=== PATIENT | female | born 1960 ===

== ENCOUNTER 2017-07-20 06:17 | Day surgery (SDC) | payer BC, OTHER ==
[2017-07-19 11:22] VITALS: BMI 33.6
[2017-07-20] MEDS ORDERED: LIDOCAINE HCL 1%, 10 MG/ML (20ML VIAL) ONE (07:22)
[2017-07-20] MEDS ORDERED: DEXAMETHASONE SOD PHOSPHATE 4 MG/1 ML VIAL ONE ×3 (07:22→09:06)
[2017-07-20] MEDS ORDERED: BUPIVACAINE HCL/PF 0.5% (5MG/ML) 10 ML VIAL ONE (07:22)
[2017-07-20] MEDS ORDERED: PROPOFOL 20 ML ONE ×2 (08:00)
[2017-07-20] MEDS ORDERED: CLINDAMYCIN PHOSPHATE 600 MG/4 ML VIAL ONE (08:00)
[2017-07-20] MEDS ORDERED: LIDOCAINE HCL/PF 2% SDV 5ML VIAL ONE (08:00)
[2017-07-20] MEDS ORDERED: MIDAZOLAM HCL 2 MG/2 ML SINGLE DOSE VIAL ONE (08:00)
[2017-07-20] MEDS ORDERED: BUPIVACAINE HCL/PF 0.5% (5MG/ML) 10 ML VIAL PNB ONE (08:32)
[2017-07-20] MEDS ORDERED: LIDOCAINE HCL 1%, 10 MG/ML (50 mL VIAL) IJ ONE (08:32)
[2017-07-20] MEDS ORDERED: KETOROLAC TROMETHAMINE 30 MG/1 ML VIAL ONE (08:40)
[2017-07-20] MEDS ORDERED: CLINDAMYCIN 600 MG PREMIX BAG IVPB ONE (08:48)
[2017-07-20] MEDS ORDERED: BENZOIN/ALOE VERA/STORAX/TOLU 58 ML BOTTLE ONE (08:56)
[2017-07-20] MEDS ORDERED: oxyCODONE HCL 5 MG TABLET PO PRN (09:27)
[2017-07-20] MEDS ORDERED: ONDANSETRON 4 MG/2 ML VIAL IVPUSH PRN (09:27)
[2017-07-20] MEDS ORDERED: SCOPOLAMINE HYDROBROMIDE 1 PATCH PATCH.TD72 TD SCH (09:30)
[2017-07-20] MEDS ORDERED: LACTATED RINGERS SOLUTION 1,000 ML IV SCH (09:30)
[2017-07-20] MEDS ORDERED: SCOPOLAMINE HYDROBROMIDE 1 PATCH PATCH.TD72 TD ONE (09:33)
[2017-07-20 10:25] VITALS: TEMP 97.8
[2017-07-20 17:22] VITALS: BP 144/90; PULSE 70
--- NOTE | 2017-07-23 15:21 | PATH ---
Surgical Pathology Report Patient Name: KATHERINE LEE [facility]. Rec. #: [id number] /Age/Gender: 1960 (Age: 57) / M Account: [id number] Location: [facility] Taken: 07/20/2017 Received: 07/20/2017 Reported: 07/23/2017 Physicians: Veronica Martin DPM Specimen(s) Received BONE FROM RIGHT FOOT Clinical History Right foot bunion Final Diagnosis BONE, FOOT, RIGHT, BUNIONECTOMY: BONE WITH DEGENERATIVE CHANGES, DENSE FIBROCONNECTIVE TISSUE AND FIBROADIPOSE TISSUE. Electronically Signed Emerald Carias M.D. Gross Description Received in formalin labeled "bone from right foot," are 2 gonzales, irregular portions of bone measuring 1.2 x 0.8 x 0.3 cm and 1.8 x 1.5 x 0.2 cm. Hydropulper Operator sections are submitted in one cassette, following decalcification. /07/20/2017 [facility]07/20/2017
--- NOTE | 2017-07-29 13:48 | OP ---
DATE OF OPERATION: DATE OF DICTATION: 07/29/2017 SURGEONS: Veronica Martin DPM; Jagdeep Fontaine DPM DIESEL LOCOMOTIVE FIRER: Fredi, PGY-2 PREOPERATIVE DIAGNOSIS: Right foot painful bunion. POSTOPERATIVE DIAGNOSIS: Right foot painful bunion. PROCEDURE: Right foot Chauncey bunionectomy with screw fixation. ANESTHESIA: Local with MAC. PATHOLOGY: Right foot bone and soft tissue. ESTIMATED BLOOD LOSS: Minimal. HEMOSTASIS: Right ankle tourniquet at 250 mmHg and electrocautery. MATERIALS USED: A 16 mm 3.0 Essex 28 screw; 2-0 Vicryl, 3-0 Vicryl, 4-0 Vicryl suture, and 4-0 Monocryl suture; dry sterile dressing and Coban. INJECTABLES: 20 mL of a 1:1 mixture of 1% lidocaine plain and 0.5% Marcaine plain used preoperatively, and 10 mL of a mixture of 7 to 3 of 0.5% Marcaine and 4 mg dexamethasone used postoperatively. DESCRIPTION: The patient was brought to the operating room and placed on the operating table in the supine position. A pneumatic ankle tourniquet was placed on the patient's right ankle. Following IV sedation, local anesthesia was obtained using 20 mL of a 1:1 mixture of 1% lidocaine plain and 0.5% Marcaine plain throughout the surgical site. The right foot was then scrubbed, prepped and draped in the usual aseptic manner. An Esmarch bandage was then utilized to exsanguinate the patient's right foot and the tourniquet was inflated. Attention was first directed to the dorsal aspect of the first metatarsal head of the right foot, where a linear incision was made medial and parallel to the tendon of the extensor hallucis longus. The incision was then deepened through the subcutaneous tissue using sharp and blunt dissection. Care was taken to identify all vital neural and vascular structures. All bleeders were ligated and cauterized as necessary. At this time, a linear capsulotomy was performed over the dorsal aspect of the 1st metatarsophalangeal joint. The periosteal and capsular structures were carefully dissected medially and laterally, exposing the head of the 1st metatarsal. Attention was then directed to the medial aspect of the 1st metatarsal head. Using a sagittal saw, the medial prominence was then resected and passed from the operative field and sent to Pathology. Retraction was directed for better visualization of the first metatarsal head. A through and through chevron-type osteotomy was then created utilizing a sagittal saw, the apex pointed distally. The capital fragment was then shifted laterally to improve the position and then impacted into the head of the metatarsal shaft using a 0.45 K wire driven across the osteotomy to provide temporary fixation. Using a 3.0 16-mm Essex 28 screw, this was inserted across the osteotomy site, providing excellent compression and fixation. Then the initial K wire fixator was removed. The remaining rough edges of the 1st metatarsal head were then resected using a power bur, and the bunion deformity was noted to be vastly improved. At this time, the wound was irrigated with copious amount of normal saline and the capsule was closed using 2-0 Vicryl suture and the subcutaneous tissue was closed using 3-0 Vicryl suture, and subcutaneous tissue was closed using 4-0 Vicryl suture. Using Mastisol and Steri-Strips, the skin edges were reapproximated. Postoperative injection of a 7:3 ratio, total of 10 mL, a mixture of 0.5% Marcaine plain and dexamethasone 4 mg was injected throughout the surgical site and a postoperative dressing was applied to the right foot, such as Betadine-soaked Adaptic and dry sterile dressing such as 4 x 4 sterile gauze and Coban. The tourniquet was then deflated, and immediate hyperemia returned to all the digits. The patient tolerated the procedure and anesthesia well and was transferred to the recovery room with all vital signs stable and vascular status intact to the right foot. Following postoperative monitoring, the patient will be discharged and was already given instructions and prescriptions, which was discussed prior to surgery. Fredi, dictating for MCKINLEY Barbour DPM [id number]
== END 2017-07-20 12:25 | disposition home or self-care (01) ==
LOC: JASU-SURG 06:17
PROVIDERS: ATTEND Podiatrist Foot Surgery
PROC: 0QSN04Z Reposition Right Metatarsal with Internal Fixation Device, Open Approach (ICD-10-PCS; principal; 2017-07-20 08:00)
DX: M21.611 Bunion of right foot (principal)
CPT/HCPCS: 73630-TC-RT-FY; 88304-TC; 88311-TC; 94760; 97116-GP